=== PATIENT | female | born 2000 | race Caucasian/White ===

== ENCOUNTER 2022-12-24 10:04 | Outpatient (CLI) | payer OTHER ==
[2022-12-24 11:24] LABS: BHCG - Serum Negative (NEGATIVE); Pregs Control Bar Appear? YES (CONTROL BAR)
[2022-12-24 11:25] LABS: Pregs Control Background? CLEAR/WHITE (CLR/WHITE)
== END 2022-12-24 10:05 | disposition home or self-care (01) ==
LOC: LABBT 10:04
PROVIDERS: ATTEND Otolaryngology Plastic Surgery within the Head & Neck
DX: Z01.812 Encounter for preprocedural laboratory examination (principal); J35.3 Hypertrophy of tonsils with hypertrophy of adenoids; J35.01 Chronic tonsillitis
CPT/HCPCS: 84703; 85014

== ENCOUNTER 2022-12-26 07:54 | Day surgery (SDC) | payer OTHER ==
[2022-12-24 14:30] VITALS: BMI 38.2
[2022-12-26] MEDS ORDERED: Ferric Subsulfate (ASTRINGYN) 8 GM VIAL ONE (09:44)
[2022-12-26] MEDS ORDERED: fentaNYL PF 100 MCG/2 ML SYRINGE ONE (09:51)
[2022-12-26] MEDS ORDERED: Ondansetron PF 4 MG/2 ML Vial ONE (10:00)
[2022-12-26] MEDS ORDERED: Rocuronium Bromide 10 MG/ML (10ML VIAL) ONE (10:00)
[2022-12-26] MEDS ORDERED: Succinylcholine Chloride 100 MG/5 ML SYRINGE FS ONE (10:00)
[2022-12-26] MEDS ORDERED: Dexamethasone 20 MG/5 ML VIAL ONE (10:00)
[2022-12-26] MEDS ORDERED: PROPOFOL 200 MG/20 ML VIAL ONE (10:00)
[2022-12-26] MEDS ORDERED: Lidocaine 1% PF 5 ML VIAL ONE (10:00)
[2022-12-26] MEDS ORDERED: methylPREDNISolone Acetate 40 mg/ml Vial ONE (10:09)
[2022-12-26] MEDS ORDERED: Fentanyl 100 MCG/2 ML VIAL ONE ×2 (10:41→11:18)
== END 2022-12-26 12:45 | disposition home or self-care (01) ==
LOC: SDC 07:54
PROVIDERS: ATTEND Otolaryngology Plastic Surgery within the Head & Neck
PROC: 0CTPXZZ Resection of Tonsils, External Approach (ICD-10-PCS; principal; 2022-12-26)
PROC: 0CTQXZZ Resection of Adenoids, External Approach (ICD-10-PCS; principal; 2022-12-26)
DX: J35.03 Chronic tonsillitis and adenoiditis (principal); J30.9 Allergic rhinitis, unspecified; J34.3 Hypertrophy of nasal turbinates; J35.8 Other chronic diseases of tonsils and adenoids; E66.9 Obesity, unspecified; Z68.38 Body mass index [BMI] 38.0-38.9, adult; Z79.2 Long term (current) use of antibiotics
CPT/HCPCS: 88304; J1030; J1100; J2405; J2704; J3010